=== PATIENT | female | born 1975 | race Caucasian/White ===

== ENCOUNTER 2020-08-19 18:53 | Emergency (ER) | payer OTHER ==
[~2020-08-19] VITALS: Ht 170.2 cm; Wt 77.1 kg
[2020-08-20 03:09] VITALS: BP 109/87
== END 2020-08-19 22:15 | disposition home or self-care (01) ==
LOC: ER 18:53
DX: I80.9 Phlebitis and thrombophlebitis of unspecified site (principal); S60.222A Contusion of left hand, initial encounter; E78.00 Pure hypercholesterolemia, unspecified; X58.XXXA Exposure to other specified factors, initial encounter; Y93.89 Activity, other specified; Y92.89 Other specified places as the place of occurrence of the external cause; Y99.8 Other external cause status